=== PATIENT | female | born 1960 | race Caucasian/White ===

== ENCOUNTER 2018-06-23 20:07 | Emergency (ER) | payer OTHER ==
--- NOTE | 2018-06-23 21:53 | ER Document Report ---
ED Medical Screen (RME) - General Chief Complaint: Diarrhea Stated Complaint: DIARRHEA/FEELING FAINT Time Seen by Provider: 06/23/18 21:48 Mode of Arrival: Ambulatory Information source: Patient Notes: 58 yo female c/o low abdominal crampy intermittent pain and explosive diarrhea today x 2 this morning, no blood. Sweating in a lot of pain and passed out, arms and legs were tingling. EMS seen her and vitals were fine Intermittent diarrhea increasingly more frequent March 2018. Immodium taken twice. . Hx C diff , IBS-D, microscopic colitis. No fever. 10 day course of flagyl to today for the diarrhea. Pt took her son's flagyl that was left over. Pt of Jack. She is here in ER [facility] for tx of the diarrhea. TRAVEL OUTSIDE OF THE [place] IN LAST 30 DAYS: No - Related Data Allergies/Adverse Reactions: No Known Allergies Allergy (Verified 09/11/14 19:59) Past Medical History Malignancy Medical History: Reports: Hx Breast Cancer Past Surgical History: Reports: Hx Mastectomy - bilat, Hx Thyroid Surgery - left side removed - Immunizations Hx Diphtheria, Pertussis, Tetanus Vaccination: Yes Physical Exam - Vital signs Vitals: Temp Pulse Resp BP Pulse Ox 98.4 F 73 18 136/92 H 100 06/23/18 20:26 06/23/18 20:26 06/23/18 20:26 06/23/18 20:26 06/23/18 20:26 Course - Vital Signs Vital signs: Temp Pulse Resp BP Pulse Ox 98.4 F 73 18 136/92 H 100 06/23/18 20:26 06/23/18 20:26 06/23/18 20:26 06/23/18 20:26 06/23/18 20:26 Doctor's Discharge - Discharge Referrals: CHUN SMITH MD [Primary Care Provider] - Follow up as needed
[2018-06-23] MEDS ORDERED: NORMAL SALINE 1000 ML 1,000 ML IV ONE (22:15)
[2018-06-23] MEDS ORDERED: DICYCLOMINE HCL INJ 20 MG/2 ML AMPULE IM ONE (22:16)
--- NOTE | 2018-06-23 22:18 | ER Document Report ---
ED General - General Chief Complaint: Diarrhea Stated Complaint: DIARRHEA/FEELING FAINT Time Seen by Provider: 06/23/18 21:48 Mode of Arrival: Ambulatory Notes: Patient is a 58-year-old female presents with complaint of diarrhea. She is been having chronic intermittent diarrhea for years. She said 2 years ago she had C. difficile from her son. This then triggered her to have IBS and she is been dealing with IBS ever since. She says she has had diarrhea now for approximately 2 weeks has been intermittent. She took a 10-day course of her son's Flagyl. Today was the 10th day. She was not tested for C. difficile so does not really know if she has C. difficile again or not. She says she does not have the typical smell that she has had in the past with C. difficile. This morning she had an explosive episode of diarrhea. She has not had any diarrhea since then. No vomiting. Some intermittent crampy abdominal pain is worse in the lower portions of the abdomen. No history of diverticulitis. She says her colonoscopies have just shown a few small polyps but nothing else. She is followed by Dr. Santiago. Blood in her stool. No fevers. No other complaints at this time. TRAVEL OUTSIDE OF THE [place] IN LAST 30 DAYS: No - Related Data Allergies/Adverse Reactions: No Known Allergies Allergy (Verified 09/11/14 19:59) Past Medical History - General Information source: Patient - Social History Smoking Status: Unknown if Ever Smoked Frequency of alcohol use: None Drug Abuse: None Family History: Reviewed & Not Pertinent Malignancy Medical History: Reports: Hx Breast Cancer Past Surgical History: Reports: Hx Mastectomy - bilat, Hx Thyroid Surgery - left side removed - Immunizations Hx Diphtheria, Pertussis, Tetanus Vaccination: Yes Review of Systems - Review of Systems Notes: My Normal Review Basic REVIEW OF SYSTEMS: CONSTITUTIONAL : Denies fever, chills, or sweats. Denies recent illness. CARDIOVASCULAR: Denies chest pain. RESPIRATORY: Denies cough, cold, or chest congestion. Denies shortness of breath, difficulty breathing, or wheezing. GASTROINTESTINAL: Mild lower abdominal pain. Diarrhea. GENITOURINARY: Denies difficulty urinating, painful urination, burning, frequency, or blood in urine. MUSCULOSKELETAL: Denies neck or back pain or joint pain or swelling. SKIN: Denies rash or skin lesions. NEUROLOGICAL: Denies altered mental status or loss of consciousness. Denies headache. Denies weakness or paralysis or loss of use of either side. Denies problems with gait or speech. Denies sensory or motor loss. ALL OTHER SYSTEMS REVIEWED AND NEGATIVE. Physical Exam - Vital signs Vitals: Temp Pulse Resp BP Pulse Ox 98.4 F 73 18 136/92 H 100 06/23/18 20:26 06/23/18 20:26 06/23/18 20:26 06/23/18 20:26 06/23/18 20:26 - Notes Notes: General Appearance: Well nourished, alert, cooperative, no acute distress, no obvious discomfort. Well-appearing. Vitals: reviewed, See vital signs table. Head: no swelling or tenderness to the head Eyes: PERRL, EOMI, Conjuctiva clear Mouth: No decreasd moisture Lungs: No wheezing, No rales, No rhonci, No accessory muscle use, good air exchange bilaterally. Heart: Normal rate, Regular rythm, No murmur, no rub Abdomen: Normal BS, soft, No rigidity, very mild bilateral lower abdominal tenderness palpation., No guarding, no rebound, no abdominal masses, no organomegaly Extremities: strength 5/5 in all extremities, good pulses in all extremities, no swelling or tenderness in the extremities, no edema. Skin: warm, dry, appropriate color, no rash Neuro: speech clear, oriented x 3, normal affect, responds appropriately to questions. Course - Re-evaluation Re-evalutation: 06/24/18 05:35 Patient's laboratory evaluation is unremarkable. She has not had any further diarrhea and has been unable to give us a stool sample. I suspect this could be related to her IBS. I will place her on Bentyl. She has an upcoming appointment Dr. islas next week. I have written a outpatient prescription for C. difficile testing informed her to let Dr. Santiago know that she was tested for this and they can follow-up on the results. I encouraged her return to ER immediately if she has recurrent worsening diarrhea, fevers, blood in her stool , or she feels unwell. Patient agrees with plan and will be discharged home. Dictation of this chart was performed using voice recognition software; therefore, there may be some unintended grammatical errors. - Vital Signs Vital signs: Temp Pulse Resp BP Pulse Ox 98.4 F 62 18 132/86 H 97 06/23/18 20:26 06/24/18 00:25 06/24/18 00:25 06/24/18 00:25 06/24/18 00:25 - Laboratory Result Diagrams: 06/23/18 22:56 06/23/18 22:56 Laboratory results interpreted by me: 06/23/18 06/23/18 22:56 22:56 Sodium 147.5 H Potassium 3.1 L Urine Ketones TRACE H Urine Urobilinogen 2.0 H Ur Leukocyte Esterase SMALL H Discharge - Discharge Clinical Impression: Hypokalemia Diarrhea Qualifiers: Diarrhea type: unspecified type Qualified Code(s): R19.7 - Diarrhea, unspecified Disposition: HOME, SELF-CARE Additional Instructions: Please follow-up with Dr. Santiago this coming week. Please take a stool sample to the outpatient lab with the prescription given to you to get C. difficile testing performed. Please inform Dr. Santiago that this test was performed. Please return to the ER immediately if you have recurrent episodes of passing out, worsening diarrhea, worsening pain, fevers, or bloody stools. Prescriptions: Dicyclomine HCl [Bentyl 20 mg Tablet] 20 mg PO QID #20 tablet Forms: Follow-Up Laboratory Testing, Return to Work
[2018-06-23 23:13] LABS: ABSOLUTE EOSINOPHILS # (AUTO) 0.1 10^3/uL (0.0-0.6); ABSOLUTE LYMPHOCYTES (AUTO) 2.1 10^3/uL (0.5-4.7); ABSOLUTE MONOCYTES (AUTO) 0.6 10^3/uL (0.1-1.4); ABSOLUTE NEUT (AUTO) 3.5 10^3/uL (1.7-8.2); BASOPHILS % (AUTO) 0.6 % (0-2); HEMATOCRIT 43.3 % (36.0-47.0); HEMOGLOBIN 14.8 g/dL (12.0-15.5); LYMPHOCYTES % (AUTO) 32.9 % (13-45); MEAN CORPUSCULAR HEMOGLOBIN 32.1 pg (27.0-33.4); MEAN CORPUSCULAR HGB CONC 34.2 g/dL (32.0-36.0); MEAN CORPUSCULAR VOLUME 94 fl (80-97); MONOCYTES % (AUTO) 9.7 % (3-13); PLATELET COUNT 190 10^3/uL (150-450); RED BLOOD COUNT 4.61 10^6/uL (3.72-5.28); RED CELL DISTRIBUTION WIDTH 12.4 % (11.5-14.0); SEGMENTED NEUTROPHILS % (AUTO) 55.8 % (42-78); TOTAL CELLS COUNTED % (AUTO) 100 %; WHITE BLOOD COUNT 6.3 10^3/uL (4.0-10.5)
[2018-06-23 23:23] LABS: APPEARANCE,URINE CLOUDY; BILIRUBIN,URINE NEGATIVE (NEGATIVE); GLUCOSE, URINE NEGATIVE (NEGATIVE); KETONES,URINE TRACE mg/dL (NEGATIVE); LEUKOCYTE ESTERASE,URINE SMALL (NEGATIVE); NITRITE,URINE NEGATIVE (NEGATIVE); PROTEIN,URINE NEGATIVE (NEGATIVE); URINE SPECIFIC GRAVITY 1.017
[2018-06-23 23:24] LABS: COLOR,URINE YELLOW
[2018-06-23 23:47] LABS: ALANINE AMINOTRANSFERASE 25 U/L (9-52); ALBUMIN 4.8 g/dL (3.5-5.0); ALKALINE PHOSPHATASE 56 U/L (38-126); ANION GAP 14 (5-19); ASPARTATE AMINO TRANSFERASE 32 U/L (14-36); BILIRUBIN,DIRECT 0.3 mg/dL (0.0-0.4); BILIRUBIN,TOTAL 0.5 mg/dL (0.2-1.3); BLOOD UREA NITROGEN 12 mg/dL (7-20); CALCIUM 10.2 mg/dL (8.4-10.2); CARBON DIOXIDE 28 mmol/L (22-30); CHLORIDE 106 mmol/L (98-107); GLUCOSE 95 mg/dL (75-110); POTASSIUM 3.1 mmol/L (3.6-5.0); SODIUM 147.5 mmol/L (137-145); TOTAL PROTEIN 7.9 g/dL (6.3-8.2)
[2018-06-23] MEDS ORDERED: POTASSIUM CHLORIDE 10 MEQ CAPSULE.ER PO ONE (23:56)
[2018-06-24 00:31] VITALS: BP 132/86
== END 2018-06-24 00:31 | disposition home or self-care (01) ==
LOC: ER 20:07
DX: R19.7 Diarrhea, unspecified (principal); E87.6 Hypokalemia; R10.30 Lower abdominal pain, unspecified
CPT/HCPCS: 99284; 96372; 96360; 36415; 87086; 85025; 80053; 81001; J0500; J7030